=== PATIENT | female | born 1990 | race Caucasian/White ===

== ENCOUNTER 2021-03-05 11:44 | Emergency (ER) | payer MEDICAID, SELFPAY ==
[2021-03-06 00:40] LABS: SARS-CoV-2 PCR by NAA DETECTED (NotDetected)
== END 2021-03-05 12:35 | disposition home or self-care (01) ==
LOC: NAV ERS 11:44
DX: U07.1 COVID-19 (principal); I10 Essential (primary) hypertension; Z79.899 Other long term (current) drug therapy
CPT/HCPCS: 87804; 99284; U0003; U0005

== ENCOUNTER 2021-04-14 10:30 | Emergency (ER) | payer MEDICAID, SELFPAY ==
[2021-04-14] MEDS ORDERED: Ketorolac Tromethamine 30 MG/ML VIAL ONE (11:10)
[2021-04-14] MEDS ORDERED: Ondansetron PF 4 MG/2 ML Vial ONE (11:10)
[2021-04-14 11:25] LABS: #Basophils 0.1 thou/uL (0.0-0.2); #Eosinphils 0.4 thou/uL (0.0-0.7); #Lymphocytes 2.5 thou/uL (1.20-3.40); #Monocytes 0.6 thou/uL (0.11-0.59); %Basophils 0.9 % (0.0-1.0); %Eosinophils 5.6 % (0.0-10.0); %Lymphocytes 33.1 % (21.0-51.0); %Monocytes 8.1 % (0.0-10.0); %Neutrophils 52.4 % (42.0-75.0); Hemoglobin 13.7 g/dL (12.0-16.0); Mean Corpuscular HGB CONC 33.3 g/dL (32.0-36.0); Mean Corpuscular Hemoglobin 29.1 pg (27.0-31.0); Mean Corpuscular Volume 87.4 fL (78.0-98.0); Mean Platelet Volume 6.5 fL (7.4-10.4); Platelet Count 259 thou/uL (130-400); RBC Distribution Width 11.5 % (11.5-14.5); Red Blood Cell (RBC) Count 4.69 mill/uL (4.20-5.40); White Blood Cell (WBC) Count 7.7 thou/uL (4.8-10.8)
[2021-04-14 11:43] LABS: ALT (SGPT) 16 U/L (8-55); AST (SGOT) 17 U/L (5-34); Albumin 4.1 g/dL (3.5-5.0); Alkaline Phosphatase 67 U/L (40-110); Anion Gap 12 mmol/L (10-20); BUN (Urea Nitrogen) 13 mg/dL (7.0-18.7); Bilirubin, Total 0.2 mg/dL (0.2-1.2); Calc. Creatinine Clearance 0 mL/min (70-130); Calcium 9.1 mg/dL (7.8-10.44); Carbon Dioxide 24 mmol/L (22-29); Chloride 104 mmol/L (98-107); Globulin 3.2 g/dL (2.4-3.5); Glucose 124 mg/dL (70-105); Lipase 29 U/L (8-78); Potassium 4.1 mmol/L (3.5-5.1); Protein, Total 7.3 g/dL (6.0-8.3); Sodium 136 mmol/L (136-145)
[2021-04-14 11:50] LABS: Bilirubin Negative (Negative); Blood, Urine Negative (Negative); Clarity Clear (Clear); Glucose, Urine (Dipstick) Negative (Negative); Ketone, Urine Negative (Negative); Leukocyte Negative (Negative); Nitrite Negative (Negative); Protein, Urine (Dipstick) Negative (Neg-Trace); Specific Gravity, Urine 1.025 (1.005-1.030); Urobilinogen 0.2 mg/dL (Less than 2); pH, Urine 5.5 (5.0-9.0)
[2021-04-14] MEDS ORDERED: Morphine 4 MG/ML VIAL ONE (12:24)
== END 2021-04-14 13:05 | disposition short-term general hospital (02) ==
LOC: NAV ERS 10:30
DX: R10.9 Unspecified abdominal pain (principal); I10 Essential (primary) hypertension; Z79.899 Other long term (current) drug therapy
CPT/HCPCS: 74176; 80053; 81003; 83690; 85025; 96374; 96375; J1885; J2270; J2405

== ENCOUNTER 2022-01-20 14:03 | Emergency (ER) | payer OTHER, SELFPAY ==
[2022-01-20] MEDS ORDERED: Ibuprofen 200 MG TAB ONE (14:57)
[2022-01-20] MEDS ORDERED: Benzonatate 100 MG CAP ONE (14:58)
[2022-01-20 16:05] LABS: #Basophils 0.1 thou/uL (0.0-0.2); #Eosinphils 0.4 thou/uL (0.0-0.7); #Lymphocytes 1.6 thou/uL (1.20-3.40); #Monocytes 0.5 thou/uL (0.11-0.59); #Neutrophils 4.2 thou/uL (1.40-6.50); %Basophils 0.9 % (0.0-1.0); %Eosinophils 6.2 % (0.0-10.0); %Lymphocytes 23.3 % (21.0-51.0); %Neutrophils 61.6 % (42.0-75.0); Mean Corpuscular HGB CONC 32.9 g/dL (32.0-36.0); Mean Corpuscular Hemoglobin 29.8 pg (27.0-31.0); Mean Corpuscular Volume 90.8 fl (78.0-98.0); Mean Platelet Volume 6.9 fL (7.4-10.4); Platelet Count 201 thou/uL (130-400); RBC Distribution Width 11.7 % (11.5-14.5); Red Blood Cell (RBC) Count 4.35 mill/uL (4.20-5.40); White Blood Cell (WBC) Count 6.8 thou/uL (4.8-10.8)
[2022-01-20 16:18] LABS: Bilirubin Negative (Negative); Blood, Urine Negative (Negative); Clarity Clear (Clear); Glucose, Urine (Dipstick) Negative (Negative); Ketone, Urine Trace mg/dL (Negative); Leukocyte Negative (Negative); Nitrite Negative (Negative); Protein, Urine (Dipstick) Negative (Neg-Trace)
[2022-01-20 16:20] LABS: ALT (SGPT) 11 U/L (8-55); AST (SGOT) 14 U/L (5-34); Albumin 3.6 g/dL (3.5-5.0); Alkaline Phosphatase 69 U/L (40-110); Anion Gap 14 mmol/L (10-20); BUN (Urea Nitrogen) 12 mg/dL (7.0-18.7); Bilirubin, Total 0.2 mg/dL (0.2-1.2); CK (CPK) 77 U/L (29-168); Calc. Creatinine Clearance 0 mL/min (70-130); Calcium 8.6 mg/dL (7.8-10.44); Carbon Dioxide 22 mmol/L (22-29); Chloride 108 mmol/L (98-107); Estimated GFR 98; Globulin 2.8 g/dL (2.4-3.5); Glucose 107 mg/dL (70-105); Potassium 3.9 mmol/L (3.5-5.1); Protein, Total 6.4 g/dL (6.0-8.3); Sodium 140 mmol/L (136-145)
== END 2022-01-20 17:10 | disposition home or self-care (01) ==
LOC: NAV ERS 14:03
DX: J06.9 Acute upper respiratory infection, unspecified (principal); Z20.822 Contact with and (suspected) exposure to COVID-19
CPT/HCPCS: 36415; 71046; 80053; 81003; 82550; 84443; 85025; 87804; U0003; U0005

== ENCOUNTER 2022-01-26 12:25 | Emergency (ER) | payer MEDICAID, SELFPAY ==
[2022-01-26] MEDS ORDERED: predniSONE 20 MG TAB ONE ×2 (12:58→13:19)
[2022-01-26] MEDS ORDERED: predniSONE 20 MG TAB PO SCH (13:15)
[2022-01-26] MEDS ORDERED: GUAIFENESIN SF SOLN 200 MG/10 ML UDCUP ONE (13:36)
[2022-01-26] MEDS ORDERED: guaiFENesin/Codeine 200 mg/20 mg 10 ml Cup PO SCH (14:00)
== END 2022-01-26 14:33 | disposition home or self-care (01) ==
LOC: NAV ERS 12:25
DX: J20.9 Acute bronchitis, unspecified (principal); B34.9 Viral infection, unspecified; I10 Essential (primary) hypertension; Z79.899 Other long term (current) drug therapy
CPT/HCPCS: 71046; J7512; J7620

== ENCOUNTER 2022-02-17 19:46 | Emergency (ER) | payer SELFPAY ==
[2022-02-17] MEDS ORDERED: Ibuprofen 800 MG TAB ONE (20:17)
[2022-02-17] MEDS ORDERED: Cephalexin 250 MG CAP ONE (20:17)
== END 2022-02-17 20:40 | disposition home or self-care (01) ==
LOC: NAV ERS 19:46
DX: L03.114 Cellulitis of left upper limb (principal); I10 Essential (primary) hypertension; F17.210 Nicotine dependence, cigarettes, uncomplicated; Z79.899 Other long term (current) drug therapy
CPT/HCPCS: 99283

== ENCOUNTER 2022-07-20 10:53 | Emergency (ER) | payer SELFPAY ==
[2022-07-20] MEDS ORDERED: Mag-Al Plus 1200 MG/1200 MG/120 MG/30 ML UDCUP ONE (11:57)
[2022-07-20] MEDS ORDERED: Lidocaine Viscous Sol 2% 15 ml UD Cup ONE (11:57)
== END 2022-07-20 12:09 | disposition home or self-care (01) ==
LOC: NAV ERS 10:53
DX: K22.9 Disease of esophagus, unspecified (principal); I10 Essential (primary) hypertension; F17.210 Nicotine dependence, cigarettes, uncomplicated
CPT/HCPCS: 70360

== ENCOUNTER 2024-11-26 14:55 | Emergency (ER) | payer SELFPAY ==
[2024-11-26] MEDS ORDERED: Ibuprofen 200 MG TAB ONE (15:25)
== END 2024-11-26 16:30 | disposition home or self-care (01) ==
LOC: NAV ERS 14:55
DX: R07.81 Pleurodynia (principal); F19.10 Other psychoactive substance abuse, uncomplicated; I10 Essential (primary) hypertension; F17.290 Nicotine dependence, other tobacco product, uncomplicated; Z79.899 Other long term (current) drug therapy
CPT/HCPCS: 71046; 87426; 93005; 94640; 94664; J7620